=== PATIENT | male | born 1985 | race Caucasian/White ===

== ENCOUNTER 2020-01-01 15:03 | Emergency (ER) | payer OTHER ==
[~2020-01-01] VITALS: Ht 182.9 cm; Wt 88.0 kg
[~2020-01-01 15:03] MED LIST: NORCO 5-325 TA1 EACH PO; PAXIL30 MG PO; TRAZODONE HCL50 MG PO
--- OUTSIDE RECORDS SUMMARY | 2020-01-01 15:06 | XMS ---
PreManage Notification: KATJA YARBROUGH Security [employer] [facility] Events No recent Security Events currently on file CRITERIA MET - [facility] - 2 Visits in 30 Days CARE PROVIDERS There are no care providers on record at this time. Rupali has no Care Guidelines for this patient. Patrick [facility] (12 MO.) [facility] NOTE: Visits indicate total known visits. ED/C VISIT TRACKING (12 MO.) [facility] COMPLAINT: - RIB PAIN, NILSA 12/24/2019 09:51 [facility] TYPE: Emergency COMPLAINT: - SYNCOPE DIAGNOSES: - Allergy status to penicillin - Syncope and collapse - Fracture of one rib, right side, initial encounter for closed - Personal history of nicotine dependence - Exposure to other specified factors, initial encounter - Other alf (current) drug therapy INPATIENT VISIT TRACKING (12 MO.) No inpatient visits to display in this time frame [email or web address]
--- NOTE | 2020-01-01 21:18 | EKG ---
[facility] [address] [place], [place] [address] Signed Normal sinus rhythm Normal ECG When compared with ECG of 24-DEC-2019 10:41, No significant change was found Confirmed by ANNABELLE MODI MD ([id number] on 01/01/2020 9:17:48 PM Electronically Signed By: ANNABELLE MODI MD 01/01/20 2118 PATIENT NAME: KATJA YARBROUGH RISSA Electrocardiogram DATE OF : 83 PHYSICIAN: ANNABELLE MODI MD REPORT #: [id number] REPORT IS CONFIDENTIAL AND NOT TO BE RELEASED WITHOUT AUTHORIZATION
== END 2020-01-01 17:45 | disposition home or self-care (01) ==
LOC: ED 15:03
DX: R07.89 Other chest pain (principal); R55 Syncope and collapse; Z88.0 Allergy status to penicillin; Z79.899 Other long term (current) drug therapy
CPT/HCPCS: 70450; 71046; 80053; 84443; 84484; 85025; 93005; 93010; 99285-25; C9803